=== PATIENT | female | born 1965 | race African-American/Black ===

== ENCOUNTER 2025-05-15 00:30 | Inpatient (IN) | payer MEDICAID ==
[2025-05-15] VITALS (10 sets, daily range): BP systolic 100–156; BP diastolic 64–80; PULSE 75–87; RESP 15–24; TEMP 36.4–36.8; O2SAT 97–100
[~2025-05-15] VITALS: Ht 160 cm; Wt 102.1 kg
[2025-05-15 01:36] LABS: CLARITY URINE CLOUDY (CLEAR); COLOR URINE YELLOW (YELLOW); GLUCOSE URINE 3+ (NEGATIVE); KETONES URINE NEGATIVE (NEGATIVE); LEUKOCYTE ESTERASE URINE 2+ (NEGATIVE); NITRITE URINE NEGATIVE (NEGATIVE); OCCULT BLOOD URINE NEGATIVE (NEGATIVE); PH URINE 5.0 (4.5-8.0); PROTEIN URINE 1+ (NEGATIVE); SPECIFIC GRAVITY URINE 1.021 (1.005-1.030); UROBILINOGEN URINE 0.2 E.U./dL (0.2-1.0)
[2025-05-15 01:37] LABS: BASOPHILS % 0.7 % (0.0-2.0); EOSINOPHILS % 3.6 % (0.0-5.0); HEMATOCRIT. 35.5 % (36.0-48.0); HEMOGLOBIN. 11.5 g/dL (12.0-16.0); LYMPHOCYTES % 12.9 % (20.0-50.0); MEAN PLATELET VOLUME 7.5 fl (7.4-10.4); MONOCYTES % 7.6 % (2.0-8.0); NEUTROPHILS % 75.2 % (40.0-76.0); PLATELET 287 x1000/uL (130-400); RED BLOOD CELL COUNT 4.10 mill/uL (4.2-5.4); RED CELL DISTRIBUTION WIDTH 13.9 % (11.6-14.6)
[2025-05-15 02:27] LABS: CREATININE 2.4 mg/dL (0.6-1.0); UREA NITROGEN BLOOD 54 mg/dL (9-23)
[2025-05-15 02:29] LABS: ASPARTATE AMINOTRANSFERASE 20 IU/L (<34); BILIRUBIN DIRECT 0.2 mg/dL (<=3.0); BILIRUBIN TOTAL 0.6 mg/dL (0.1-1.0); PROTEIN TOTAL 7.8 g/dL (6.0-8.3)
[2025-05-15 02:34] LABS: *AMPHETAMINES SCREEN URINE NEGATIVE (NEGATIVE); *BARBITURATES SCREEN URINE NEGATIVE (NEGATIVE); *BENZODIAZEPINES SCREEN URINE NEGATIVE (NEGATIVE); *COCAINE SCREEN URINE NEGATIVE (NEGATIVE); METHADONE URINE SCREEN NEGATIVE (NEGATIVE); OPIATES URINE SCREEN NEGATIVE (NEGATIVE)
[2025-05-15 02:35] LABS: CANNABINOID URINE SCREEN NEGATIVE (NEGATIVE); ECSTASY MDMA SCREEN URINE CONF.TEST INDICATED (NEGATIVE); PHENCYCLIDINE URINE SCREEN NEGATIVE (NEGATIVE)
[2025-05-15 03:16] LABS: SQUAMOUS EPITHELIAL CELL URINE 1+ /lpf (RARE/1+)
[2025-05-15 03:34] LABS: RBC URINE 0-2 /hpf (0-2)
[2025-05-15 03:35] LABS: BACTERIA URINE TRACE
[2025-05-15] MEDS: SODIUM CHLORIDE 0.9% 1,000 ML IV ONE (05:10)
[2025-05-15] MEDS ORDERED: ACETAMINOPHEN 325MG TABLET PO PRN (08:30)
[2025-05-15] MEDS ORDERED: MAGNESIUM/ALUMINUM HYDROXIDE/SIMETHICONE 30ML UDC PO PRN (08:30)
[2025-05-15] MEDS ORDERED: CLONIDINE 0.1MG TABLET PO PRN (08:30)
[2025-05-15] MEDS ORDERED: ONDANSETRON HCL 4MG/2ML INJ IV PRN (08:30)
[2025-05-15] MEDS ORDERED: ZOLPIDEM TARTRATE 5MG TABLET PO PRN (08:30)
[2025-05-15] MEDS ORDERED: HYDROCODONE/ACETAMINOPHEN 5/325MG TABLET PO PRN (08:30)
[2025-05-15] MEDS: PANTOPRAZOLE SODIUM 40 MG/VIAL IV SCH (09:44)
[2025-05-15] MEDS: ENOXAPARIN 30MG/0.3ML SYR SUBCUT SCH (09:44)
[2025-05-15] MEDS: SODIUM CHLORIDE 0.9% 1,000 ML IV SCH (09:45)
[2025-05-15] MEDS: CEFTRIAXONE 1GM/50ML 50 ML IV SCH (10:42)
[2025-05-15] MEDS ORDERED: DEXTROSE 50% WATER 50ML SYRINGE IV PRN (13:00)
[2025-05-15] MEDS: INSULIN LISPRO 100 UNITS/ML SUBCUT SCH (13:00)
[2025-05-15] MEDS: BLOOD SUGAR DIAGNOSTIC STRIP TEST SCH (16:43)
[2025-05-16] VITALS (10 sets, daily range): BP systolic 98–145; BP diastolic 65–86; PULSE 73–95; RESP 17–25; TEMP 36.3–37; O2SAT 97–100
[2025-05-16 05:48] LABS: CREATININE 2.1 mg/dL (0.6-1.0); UREA NITROGEN BLOOD 40.0 mg/dL (9-23)
[2025-05-16 05:52] LABS: BASOPHILS % 0.6 % (0.0-2.0); EOSINOPHILS % 4.1 % (0.0-5.0); HEMATOCRIT. 33.9 % (36.0-48.0); HEMOGLOBIN. 11.0 g/dL (12.0-16.0); LYMPHOCYTES % 22.0 % (20.0-50.0); MEAN PLATELET VOLUME 8.2 fl (7.4-10.4); MONOCYTES % 9.7 % (2.0-8.0); NEUTROPHILS % 63.6 % (40.0-76.0); PLATELET 247 x1000/uL (130-400); RED BLOOD CELL COUNT 3.94 mill/uL (4.2-5.4); RED CELL DISTRIBUTION WIDTH 14.0 % (11.6-14.6)
[2025-05-16] MEDS ORDERED: ALOG1TAB7 MT (16:09)
[2025-05-16] MEDS ORDERED: GLIM4TAB36 PO (16:10)
[2025-05-16] MEDS ORDERED: DULO60CA64 PO (16:13)
[2025-05-16] MEDS ORDERED: [UNRECOGNIZED DRUG - CODE] (16:17)
[2025-05-16] MEDS ORDERED: CHOL200016 PO (16:20)
[2025-05-16] MEDS ORDERED: AMAN-17 PO (16:22)
[2025-05-16] MEDS ORDERED: CHLO25TA2 PO (16:22)
[2025-05-16] MEDS ORDERED: METH40CP PO (16:24)
[2025-05-16] MEDS ORDERED: EMPA25TA PO (16:25)
[2025-05-16] MEDS ORDERED: LISI40TA21 PO (16:26)
[2025-05-16] MEDS ORDERED: LABE100T9 PO (16:26)
[2025-05-16] MEDS ORDERED: ATOR20TA65 PO (16:28)
[2025-05-16] MEDS ORDERED: OMEP20CA14 PO (16:30)
[2025-05-16] MEDS ORDERED: BUSP15TA3 PO (16:31)
[2025-05-16] MEDS ORDERED: AMLO10TA80 PO (16:31)
[2025-05-16] MEDS ORDERED: CLOT45CR62 VG (16:34)
[2025-05-17 00:22] VITALS: BP 142/73; PULSE 86; RESP 18; TEMP 36.6; O2SAT 98
[2025-05-17 06:48] LABS: BASOPHILS % 0.9 % (0.0-2.0); EOSINOPHILS % 4.8 % (0.0-5.0); HEMATOCRIT. 35.4 % (36.0-48.0); HEMOGLOBIN. 11.6 g/dL (12.0-16.0); LYMPHOCYTES % 19.2 % (20.0-50.0); MEAN PLATELET VOLUME 8.3 fl (7.4-10.4); MONOCYTES % 8.4 % (2.0-8.0); NEUTROPHILS % 66.7 % (40.0-76.0); PLATELET 280 x1000/uL (130-400); RED BLOOD CELL COUNT 4.14 mill/uL (4.2-5.4); RED CELL DISTRIBUTION WIDTH 14.1 % (11.6-14.6)
[2025-05-17 07:09] LABS: CREATININE 2.0 mg/dL (0.6-1.0)
[2025-05-17 07:10] LABS: UREA NITROGEN BLOOD 32.0 mg/dL (9-23)
[2025-05-17 08:00] VITALS: BP 140/76; PULSE 84; RESP 18; TEMP 36.7; O2SAT 98
[2025-05-17 12:00] VITALS: BP 139/67; PULSE 93; RESP 16; TEMP 36.3; O2SAT 95
[2025-05-17 15:57] VITALS: BP 139/67; PULSE 93; RESP 16; TEMP 97.3
== END 2025-05-17 16:51 | disposition home or self-care (01) | DRG 52 ==
LOC: ER 00:30 → 5EST 04:55 → EDBEDREQ 05:12 → EDBEDREQSVC 05:12 → EDBEDREQTM 05:12 → ENRESERV 07:10 → 7EST 05-17 00:07
PROVIDERS: ADMIT Internal Medicine; ATTEND Internal Medicine
DX: G92.8 Other toxic encephalopathy (principal); N17.9 Acute kidney failure, unspecified; N39.0 Urinary tract infection, site not specified; E11.9 Type 2 diabetes mellitus without complications; F32.A Depression, unspecified; I10 Essential (primary) hypertension; Z20.822 Contact with and (suspected) exposure to COVID-19; E78.00 Pure hypercholesterolemia, unspecified; R41.0 Disorientation, unspecified; F19.90 Other psychoactive substance use, unspecified, uncomplicated
CPT/HCPCS: 36415; 71045; 80048; 80076; 80305; 80307; 80320; 80329; 81003; 82962; 83036; 84443; 85025; 87426; 93970; 99285; A4606; A4615; J0696; J1650; J1815; J2470; J7030; G0480